=== PATIENT | female | born 1990 | race Caucasian/White ===

== ENCOUNTER 2016-12-24 03:32 | Inpatient (IN) | payer OTHER ==
[2016-12-24] VITALS (23 sets, daily range): BP systolic 105–157; BP diastolic 58–103
[~2016-12-24] VITALS: Ht 165.1 cm; Wt 100.5 kg
[2016-12-24 04:24] LABS: EOSINOPHIL (%) 0.4 % (0-5); HEMATOCRIT 39.9 % (36.0-46.0); IMMATURE GRANULOCYTE (%) 0.4 % (0.0-0.7); LYMPHOCYTE COUNT 1.5 K/uL (1.0-2.8); MCHC 34.8 G/DL (30.0-36.0); MCV 89.1 FL (83-99); MEAN PLAT.VOLUME 11.5 uM^3 (9.5-12.4); MONOCYTE (%) 4.7 % (3-12); MONOCYTE COUNT 0.4 K/uL (0-0.8); NEUTROPHIL (%) 75.2 % (45-76); PLATELET COUNT 158 K/uL (156-360); RBC DIS.WIDTH-CV 12.9 % (11.8-14.6); RBC DIS.WIDTH-SD 42.1 % (39-53); RED BLOOD COUNT 4.48 M/uL (3.80-5.20)
[2016-12-24 04:35] LABS: CHLORIDE 106 mEq/L (99-109); POTASSIUM 3.6 mEq/L (3.7-5.4); SODIUM 136 mEq/L (136-147)
[2016-12-24 04:37] LABS: GLUCOSE 92 mg/dL (70-99)
[2016-12-24 04:38] LABS: ANION GAP 10 MEQ/L (2-14)
[2016-12-24 04:39] LABS: TOTAL BILIRUBIN 0.4 mg/dL (0.0-1.0)
[2016-12-24 04:41] LABS: ALKALINE PHOSPHATASE 131 IU/L (3-129); GFR ESTIMATE (CALCULATED) > 59 mL/min/
[2016-12-24 04:42] LABS: UREA NITROGEN (BUN) 3 mg/dL (9-23)
[2016-12-24] MEDS ORDERED: PRENATAL TABLE1 EAC3 PO (04:51)
[2016-12-24] MEDS ORDERED: CHILD ASPIRIN81 M1 PO (04:51)
[2016-12-24 05:32] LABS: UR CREATININE CONCENTRATION 29.3 MG/DL
[2016-12-24 09:22] LABS: LACTATE DEHYDROGENASE 139 IU/L (20-246); URIC ACID 4.4 mg/dL (3.1-9.2)
[2016-12-25 07:44] VITALS: BP 127/74
[2016-12-25 07:46] LABS: EOSINOPHIL (%) 0 % (0-5); HEMATOCRIT 37.8 % (36.0-46.0); IMMATURE GRANULOCYTE (%) 0.5 % (0.0-0.7); IMMATURE GRANULOCYTE COUNT 0.1 K/uL; INSTRUMENT ABS NEUTROPHIL CT 11.4 K/uL; LYMPHOCYTE COUNT 1.2 K/uL (1.0-2.8); MCH 30.5 PG (29.0-34.0); MCHC 33.6 G/DL (30.0-36.0); MCV 90.6 FL (83-99); MEAN PLAT.VOLUME 11.5 uM^3 (9.5-12.4); MONOCYTE COUNT 0.8 K/uL (0-0.8); NEUTROPHIL (%) 84.7 % (45-76); NEUTROPHIL COUNT 11.4 K/uL (1.8-6.4); PLATELET COUNT 171 K/uL (156-360); RBC DIS.WIDTH-CV 13.2 % (11.8-14.6); RBC DIS.WIDTH-SD 43.6 % (39-53); RED BLOOD COUNT 4.17 M/uL (3.80-5.20); WHITE BLOOD COUNT 13.4 K/uL (4.1-10.2)
[2016-12-25 15:40] VITALS: BP 136/84
[2016-12-25 22:30] VITALS: BP 140/75
[2016-12-26 07:57] VITALS: BP 115/77
[2016-12-26] MEDS ORDERED: IBUPROFEN800 MG PO (10:27)
== END 2016-12-26 13:35 | disposition home or self-care (01) | DRG 775 ==
LOC: LDRP-OP → 2WEST 03:33 → LDRP-OP 12-25 07:28 → 2WEST 12-26 13:35 → LDRP-OP 01-14 15:50
PROVIDERS: Advanced Practice Midwife
DX: O70.1 Second degree perineal laceration during delivery (principal); O48.0 Post-term pregnancy; O99.214 Obesity complicating childbirth; E66.9 Obesity, unspecified; Z68.32 Body mass index [BMI] 32.0-32.9, adult; Z3A.41 41 weeks gestation of pregnancy; Z37.0 Single live birth; Z82.49 Family history of ischemic heart disease and other diseases of the circulatory system
CPT/HCPCS: 80053; 82570; 83615; 84156; 84550; 85025; J0595; J7120